=== PATIENT | female | born 1970 | race Caucasian/White ===

== ENCOUNTER 2021-03-31 10:56 | Outpatient (CLI) | payer OTHER ==
--- NOTE | 2021-03-31 14:07 | XRAY Report ---
PROCEDURE: Hip w/Pelvis 2-3V RT INDICATIONS: PAIN IN RIGHT HIP JOINT TECHNIQUE: AP pelvis with lateral view(s) of the right hip(s). COMPARISON: None. FINDINGS: Bones: No fractures or dislocations. Pelvic ring appears intact. No suspicious bony lesions. Mild right hip osseous hypertrophy compatible with osteoarthritis. Soft tissues: The visualized bowel gas pattern is normal. No suspicious soft tissue calcifications. IMPRESSION: Mild right hip osteoarthritis.. Reviewed by: Annie Laughlin MD, PhD on 03/31/2021 2:05 PM PST Approved by: Annie Laughlin MD, PhD on 03/31/2021 2:05 PM PST Station ID: [id number]
== END 2021-03-31 10:57 | disposition home or self-care (01) ==
LOC: DI.S 10:56
PROVIDERS: ATTEND Physician Assistant
DX: M19.011 Primary osteoarthritis, right shoulder (principal)

== ENCOUNTER 2021-08-26 08:39 | Outpatient (CLI) | payer OTHER ==
[2021-08-26 15:05] LABS: THYROID STIMULATING HORMONE 2.12 uIU/mL (0.34-5.60)
== END 2021-08-26 08:40 | disposition home or self-care (01) ==
LOC: LAB.S 08:39
PROVIDERS: ATTEND Physician Assistant
DX: E03.9 Hypothyroidism, unspecified (principal)
CPT/HCPCS: 36415; 84443

== ENCOUNTER 2022-01-26 07:32 | Day surgery (SDC) | payer OTHER ==
[~2022-01-26 07:32] MED LIST: PROPOFOL 500 MG/50 ML 500 MG/50 ML VIAL ONE
[2022-01-26] MEDS ORDERED: LACTATED RINGERS 1,000 ML IV ONE ×2 (07:34→09:20)
--- NOTE | 2022-01-26 08:06 | ANESTHESIA ---
Pre-Anesthesia VS, & Labs - Diagnosis positive cologuard - Procedure colonoscopy Vital Signs: Temp Pulse Resp BP Pulse Ox O2 Flow Rate 36.0 C L 68 16 111/80 96 0 01/26/22 07:46 01/26/22 07:46 01/26/22 07:46 01/26/22 07:46 01/26/22 07:46 01/26/22 07:46 Height: 5 ft 3 in Weight (kg): 68 kg Body Mass Index: 26.5 BMI Classification: Overweight - NPO >8 hours - Is Patient ?: No - Lab Results Lab results reviewed: Yes Home Medications and Allergies Home Medications: Ambulatory Orders Divalproex ER [Depakote ER] 250 mg PO DAILY 01/25/22 Escitalopram [Lexapro] 10 mg PO DAILY 01/25/22 Levothyroxine [Synthroid] 50 mcg PO QDAC 01/25/22 Omeprazole Magnesium [Prilosec] 2.5 mg PO DAILY 01/25/22 Quetiapine Fumarate [Seroquel Xr] 400 mg PO DAILY 01/25/22 Divalproex ER [Depakote ER] 250 mg PO DAILY 01/25/22 Escitalopram [Lexapro] 10 mg PO DAILY 01/25/22 Levothyroxine [Synthroid] 50 mcg PO QDAC 01/25/22 Omeprazole Magnesium [Prilosec] 2.5 mg PO DAILY 01/25/22 Quetiapine Fumarate [Seroquel Xr] 400 mg PO DAILY 01/25/22 Allergies/Adverse Reactions: Allergies Allergy/AdvReac Type Severity Reaction Status Date / Time shellfish derived Allergy Anaphylaxis Verified 01/26/22 08:03 Anes History & Medical History - Anesthetic History Anesthesia Complications: reports: No previous complications Family history of Anesthesia Complications: Denies Family history of Malignant Hyperthermia: Denies - Medical History Cardiovascular: reports: None Gastrointestinal: reports: GERD Endocrine/Autoimmune: reports: HyPOthyroidism Exam General: Alert, Oriented x3, Cooperative Dental: WNL Mouth Openin Fingerbreadth Neck Mobility: Normal Mallampati classification: II Thyromental Distance: 4-6 cm Respiratory: Lungs clear, Normal breath sounds, No respiratory distress Cardiovascular: Regular rate Neurological: Normal speech Mental/Cognitive Status: Alert/Oriented X3, Normal for patient Cognitive Status: Within normal limits Plan Anesthesia Type: Total IV Consent for Procedure(s) Verified and Reviewed: Yes Code Status: Attempt Resuscitation ASA classification: 2-Mild systemic disease Is this case an emergency?: No
[2022-01-26] MEDS ORDERED: MIDAZOLAM 2 MG/2 ML VIAL ONE (08:23)
--- NOTE | 2022-01-26 09:53 | ANESTHESIA POST OP EVALUATION ---
Anesthesia Post Eval - Post Anesthesia Eval Vitals: Last Vital Signs Temp 36 C L 01/26/22 09:20 Pulse 67 01/26/22 09:20 Resp 14 01/26/22 09:20 BP 91/73 01/26/22 09:20 Pulse Ox 99 01/26/22 09:20 O2 Flow Rate 0 01/26/22 07:46 CV Function Including HR & BP: Stable Pain Control: Satisfactory Nausea & Vomiting: Negative Mental Status: Baseline Respiratory Status: Airway Patent Hydration Status: Satisfactory Anesthesia Complications: None
[2022-01-26 10:12] VITALS: BP 109/70
== END 2022-01-26 07:33 | disposition home or self-care (01) ==
LOC: SDS 07:32
PROVIDERS: ATTEND Surgery
PROC: 0DBP8ZZ Excision of Rectum, Via Natural or Artificial Opening Endoscopic (ICD-10-PCS; principal; 2022-01-26 08:30)
DX: R19.5 Other fecal abnormalities (principal); K62.1 Rectal polyp; K64.8 Other hemorrhoids; F31.9 Bipolar disorder, unspecified; F60.5 Obsessive-compulsive personality disorder; F41.9 Anxiety disorder, unspecified
CPT/HCPCS: 45380; J7120

== ENCOUNTER 2023-07-20 10:49 | Outpatient (CLI) | payer OTHER ==
--- NOTE | 2023-07-21 09:30 | Mammography Report ---
BILATERAL DIGITAL SCREENING MAMMOGRAM 3D/2D WITH EXAGGERATED CC: 07/20/2023 CLINICAL: Routine screening. Comparison is made to exam dated: 05/25/2012 mammogram - [facility]. There are scattered areas of fibroglandular density in both breasts (category b / 25%-50% glandular t issue). No significant masses, calcifications, or other findings are seen in either breast. There has been no significant interval change. IMPRESSION: NEGATIVE There is no mammographic evidence of malignancy. A 1 year screening mammogram is recommended. Based on the Tyrer Cuzick model (a risk assessment model) the patient's lifetime risk is 8.7% and her 10 year risk is 2.6%. According to the ACR, ACS, and NCCN guidelines, an annual breast MRI exam gill g with mammogram is recommended if the patient's lifetime risk is 20% or greater. This exam was interpreted at Station ID: [id number]. NOTE: For mammograms, a report in lay terms will be sent to the patient. Approximately 15% of breast malignancies will not be visualized mammographically. In the management of a palpable breast mass, a negative mammogram must not discourage biopsy of a clinically suspicious lesion. Electronically Signed By: Shaun dee/[email or web address]:07/20/2023 16:01:13 letter sent: No_Letter ACR BI-RADS Category 1: Negative 3341F PARENCHYMAL PATTERN: (A) - The breast(s) demonstrate(s) scattered fibroglandular densities. BI-RADS CATEGORY: (1) - 1 RECOMMENDATION: (ANNUAL) - Recommend routine annual screening mammography. [id number] 1 year screening LATERALITY: (B)
== END 2023-07-20 10:50 | disposition home or self-care (01) ==
LOC: DI.S 10:49
PROVIDERS: ATTEND Registered Nurse
DX: Z12.31 Encounter for screening mammogram for malignant neoplasm of breast (principal); R92.323 Mammographic fibroglandular density, bilateral breasts